=== PATIENT | male | born 1985 | race Caucasian/White ===

== ENCOUNTER 2020-12-08 23:35 | Emergency (ER) | payer MEDICAID ==
[~2020-12-08] VITALS: Ht 188 cm; Wt 77.3 kg
[2020-12-09 00:25] LABS: COVID AG,FIA SOURCE NASOPHARYNGEAL
[2020-12-09 00:48] LABS: CARBON DIOXIDE 26 mmol/L (22-29); CHLORIDE 105 mmol/L (98-107); CREATININE 0.91 mg/dL (0.60-1.30); GLOMERULAR FILTR. RATE CALC > 60 mL/min (>60); GLUCOSE,RANDOM 109 mg/dL (70-110); UREA NITROGEN, BLOOD 14 mg/dL (7-18)
[2020-12-09 00:52] LABS: ANION GAP 10 mmol/L (8-16); POTASSIUM 3.1 mmol/L (3.5-5.1); SODIUM SERUM 141 mmol/L (136-145)
[2020-12-09 01:15] VITALS: BP 144/92
[2020-12-09] MEDS ORDERED: POTASSIUM CHLORIDE 20 MEQ ER TABLET PO ONE (01:15)
[2020-12-09] MEDS ORDERED: LITH300C3 PO (16:50)
[2020-12-09] MEDS ORDERED: TRAZ-252 PO (16:50)
== END 2020-12-09 03:31 | disposition home or self-care (01) ==
LOC: EMS 23:37
DX: E87.6 Hypokalemia (principal); F12.90 Cannabis use, unspecified, uncomplicated; Z20.822 Contact with and (suspected) exposure to COVID-19
CPT/HCPCS: 80048; 99283

== ENCOUNTER 2020-12-09 03:32 | Emergency (ER) | payer MEDICAID ==
[~2020-12-09] VITALS: Ht 193 cm; Wt 77.3 kg
[2020-12-09] MEDS ORDERED: AmLODIPine BESYLATE 5 MG TABLET PO ONE (03:45)
[2020-12-09 05:33] VITALS: BP 148/77
[2020-12-09] MEDS ORDERED: TRAZ-252 PO (16:50)
[2020-12-09] MEDS ORDERED: LITH300C3 PO (16:50)
== END 2020-12-09 06:39 | disposition home or self-care (01) ==
LOC: EMS 03:37
DX: I10 Essential (primary) hypertension (principal); F12.90 Cannabis use, unspecified, uncomplicated
CPT/HCPCS: 99283

== ENCOUNTER 2020-12-09 15:19 | Inpatient (IN) | payer OTHER, MEDICAID ==
[~2020-12-09] VITALS: Ht 188 cm; Wt 74.6 kg
[2020-12-09] MEDS ORDERED: HALOPERIDOL 5 MG TABLET PO PRN (15:45)
[2020-12-09] MEDS ORDERED: LITH300C3 PO (16:50)
[2020-12-09] MEDS ORDERED: TRAZ-252 PO (16:50)
[2020-12-09 17:39] VITALS: BP 137/87
[2020-12-09] MEDS: LORazepam 2 MG TABLET PO PRN (18:58)
[2020-12-10 06:34] VITALS: BP 135/76
[2020-12-10 07:28] LABS: BASOPHILS % (AUTO) 1.3 % (0.0-2.0); EOSINOPHILS % (AUTO) 2.3 % (1.0-6.0); HEMATOCRIT 45.1 % (41-53); HEMOGLOBIN 14.8 g/dL (13.5-17.5); LYMPHOCYTES # (AUTO) 2.1 K/uL (1.0-4.8); LYMPHOCYTES % (AUTO) 43.8 % (22.0-44.0); MEAN CORPUSCULAR HEMOGLOBIN 29.6 pg (26.0-34.0); MEAN CORPUSCULAR HGB CONC 32.8 G/dL (31.0-37.0); MEAN CORPUSCULAR VOLUME 90 fL (80-100); MONOCYTES # (AUTO) 0.4 K/uL (0.1-1.0); MONOCYTES % (AUTO) 8.2 % (2.0-9.0); NEUTROPHILS # (AUTO) 2.1 K/uL (1.8-7.7); NEUTROPHILS % (AUTO) 44.4 % (40.0-70.0); PLATELET COUNT (AUTO) 240 K/uL (150-450); RED BLOOD CELL COUNT(AUTO) 4.99 MIL/uL (4.50-5.90); RED CELL DISTRIBUTION WIDTH 13.4 % (11.5-14.5)
[2020-12-10 08:00] VITALS: BP 144/81
[2020-12-10 08:08] LABS: ALANINE AMINOTRANSFERASE 18 U/L (12-78); ALKALINE PHOSPHATASE 46 U/L (46-116); ANION GAP 12 mmol/L (8-16); ASPARTATE AMINOTRANSFERASE 10 U/L (15-37); BILIRUBIN,TOTAL 1.9 mg/dL (0.1-1.0); CARBON DIOXIDE 26 mmol/L (22-29); CHLORIDE 106 mmol/L (98-107); CHOL/HDL RATIO 3.8 (4.2-7.3); CHOLESTEROL 167 mg/dL (131-200); CREATININE 0.92 mg/dL (0.60-1.30); FREE T4 (FREE THYROXINE) 1.58 ng/dL (0.76-1.46); GLOMERULAR FILTR. RATE CALC > 60 mL/min (>60); GLUCOSE,RANDOM 93 mg/dL (70-110); HDL CHOLESTEROL 44 mg/dL (40-60); LDL CHOL (CALC.) 115 mg/dL (0-130); POTASSIUM 3.9 mmol/L (3.5-5.1); SODIUM SERUM 144 mmol/L (136-145); THYROID STIMULATING HORMONE 0.11 uIU/mL (0.36-3.74); TOTAL PROTEIN, SERUM 7.1 g/dL (6.4-8.2); TRIGLYCERIDES 42 mg/dL (15-150); UREA NITROGEN, BLOOD 18 mg/dL (7-18)
[2020-12-10] MEDS ORDERED: ONDANSETRON HCL 4 MG TABLET PO PRN (09:15)
[2020-12-10] MEDS ORDERED: CloNIDine HCL 0.1 MG TABLET PO PRN (09:15)
[2020-12-10] MEDS ORDERED: MAG HYDROX/AL HYDROX/SIMETH ES 30 ML SUSPENSION UDCUP PO PRN (09:15)
[2020-12-10] MEDS ORDERED: GuaiFENesin/D-METHORPHAN [SUGAR-FREE] 200-20MG/10 ML SYRUP UDCUP PO PRN (09:15)
[2020-12-10] MEDS ORDERED: DOCUSATE SODIUM 100 MG CAPSULE PO PRN (09:15)
[2020-12-10] MEDS ORDERED: PETROLATUM,WHITE 28 GM JELLY TP PRN (09:15)
[2020-12-10] MEDS ORDERED: LOPERAMIDE HCL 2 MG CAPSULE PO PRN (09:15)
[2020-12-10] MEDS ORDERED: ALBUTEROL SULFATE HFA 90 MCG/PUFF 8 GM INHALER IH PRN (09:15)
[2020-12-10] MEDS ORDERED: NICOTINE 14 MG/24 HOUR PATCH TD PRN (09:15)
[2020-12-10] MEDS ORDERED: MAGNESIUM HYDROXIDE SUSPENSION 30 ML UDCUP PO PRN (09:15)
[2020-12-10] MEDS: LORazepam 2 MG TABLET PO PRN (09:22)
[2020-12-10] MEDS: OLANZapine 5 MG TABLET PO SCH (12:34)
[2020-12-10] MEDS: LITHIUM CARBONATE 300 MG CAPSULE PO SCH ×2 (12:34→17:11)
[2020-12-10] MEDS: TraZODone HCL 50 MG TABLET PO SCH (12:35)
[2020-12-10 16:00] VITALS: BP 110/77
[2020-12-10] MEDS: ZOLPIDEM TARTRATE 10 MG TABLET PO PRN (20:53)
[2020-12-11 01:47] VITALS: BP 114/71
[2020-12-11 08:11] VITALS: BP 140/98
[2020-12-11] MEDS: LITHIUM CARBONATE 300 MG CAPSULE PO SCH ×2 (08:43→16:29)
[2020-12-11] MEDS: OLANZapine 5 MG TABLET PO SCH (08:43)
[2020-12-11] MEDS: TraZODone HCL 50 MG TABLET PO SCH (08:43)
[2020-12-11] MEDS: LORazepam 2 MG TABLET PO PRN (10:29)
[2020-12-11 17:15] VITALS: BP 145/90
[2020-12-11] MEDS: ZOLPIDEM TARTRATE 10 MG TABLET PO PRN (22:05)
[2020-12-12 00:56] VITALS: BP 125/76
[2020-12-12 08:11] VITALS: BP 146/86
[2020-12-12] MEDS: LITHIUM CARBONATE 300 MG CAPSULE PO SCH ×2 (08:30→17:05)
[2020-12-12] MEDS: OLANZapine 5 MG TABLET PO SCH (08:30)
[2020-12-12] MEDS: TraZODone HCL 50 MG TABLET PO SCH (08:31)
[2020-12-12] MEDS: ACETAMINOPHEN 325 MG TABLET PO PRN (09:56)
[2020-12-12] MEDS: HYDROCORTISONE 2.5% 30 GM CREAM TP PRN (12:52)
[2020-12-12 16:14] VITALS: BP 135/76
[2020-12-12] MEDS: ZOLPIDEM TARTRATE 10 MG TABLET PO PRN (20:49)
[2020-12-13 00:56] VITALS: BP 118/73
[2020-12-13] MEDS: HYDROCORTISONE 2.5% 30 GM CREAM TP PRN (02:50)
[2020-12-13 08:20] VITALS: BP 140/97
[2020-12-13] MEDS: LITHIUM CARBONATE 300 MG CAPSULE PO SCH ×2 (08:38→16:28)
[2020-12-13] MEDS: TraZODone HCL 50 MG TABLET PO SCH (08:38)
[2020-12-13] MEDS: OLANZapine 5 MG TABLET PO SCH ×2 (08:38→16:28)
[2020-12-13] MEDS: ACETAMINOPHEN 325 MG TABLET PO PRN (11:04)
[2020-12-13 16:07] VITALS: BP 139/95
[2020-12-13] MEDS: ZOLPIDEM TARTRATE 10 MG TABLET PO PRN (20:55)
[2020-12-14 01:05] VITALS: BP 116/69
[2020-12-14 08:33] VITALS: BP 136/84
[2020-12-14] MEDS: OLANZapine 5 MG TABLET PO SCH ×3 (09:00→16:31)
[2020-12-14] MEDS: LITHIUM CARBONATE 300 MG CAPSULE PO SCH ×2 (10:33→17:10)
[2020-12-14] MEDS: TraZODone HCL 50 MG TABLET PO SCH (10:34)
[2020-12-14 16:16] VITALS: BP 140/82
[2020-12-15 00:37] VITALS: BP 134/80
[2020-12-15 07:46] LABS: COVID AG,FIA SOURCE NASOPHARYNGEAL
[2020-12-15 08:11] VITALS: BP 140/86
[2020-12-15] MEDS: TraZODone HCL 50 MG TABLET PO SCH (08:49)
[2020-12-15] MEDS: OLANZapine 5 MG TABLET PO SCH ×2 (08:50→16:14)
[2020-12-15] MEDS: IBUPROFEN 400 MG TABLET PO PRN (16:14)
[2020-12-15 16:17] VITALS: BP 137/85
[2020-12-16 00:15] VITALS: BP 139/87
[2020-12-16 08:09] VITALS: BP 129/76
[2020-12-16] MEDS: TraZODone HCL 50 MG TABLET PO SCH (08:48)
[2020-12-16] MEDS: OLANZapine 5 MG TABLET PO SCH ×2 (08:48→16:26)
[2020-12-16 16:08] VITALS: BP 126/79
[2020-12-17 00:21] VITALS: BP 119/76
[2020-12-17 08:09] VITALS: BP 132/90
[2020-12-17] MEDS: OLANZapine 5 MG TABLET PO SCH ×2 (09:09→16:00)
[2020-12-17] MEDS: TraZODone HCL 50 MG TABLET PO SCH (09:11)
[2020-12-17 16:10] VITALS: BP 137/86
[2020-12-17] MEDS: IBUPROFEN 400 MG TABLET PO PRN (21:51)
[2020-12-18 00:44] VITALS: BP 128/96
[2020-12-18 08:07] VITALS: BP 127/75
[2020-12-18] MEDS: TraZODone HCL 50 MG TABLET PO SCH (09:10)
[2020-12-18] MEDS: OLANZapine 5 MG TABLET PO SCH ×2 (09:10→16:39)
[2020-12-18 16:05] VITALS: BP 135/86
[2020-12-19 00:50] VITALS: BP 130/75
[2020-12-19] MEDS: TraZODone HCL 50 MG TABLET PO SCH (08:39)
[2020-12-19] MEDS: OLANZapine 5 MG TABLET PO SCH (08:40)
[2020-12-19 08:46] VITALS: BP 137/83
[2020-12-19] MEDS ORDERED: TRAZ-252 PO (10:39)
[2020-12-19] MEDS ORDERED: OLAN5TAB52 PO (10:40)
[2020-12-19 16:14] VITALS: BP 137/83
== END 2020-12-19 20:00 | disposition home or self-care (01) | DRG 885 ==
LOC: B2S 15:38
PROVIDERS: ADMIT Psychiatry & Neurology Child & Adolescent Psychiatry; ATTEND Psychiatry & Neurology Child & Adolescent Psychiatry
DX: F25.0 Schizoaffective disorder, bipolar type (principal); F22 Delusional disorders; F41.9 Anxiety disorder, unspecified; F19.10 Other psychoactive substance abuse, uncomplicated; E05.90 Thyrotoxicosis, unspecified without thyrotoxic crisis or storm; F10.10 Alcohol abuse, uncomplicated; F29 Unspecified psychosis not due to a substance or known physiological condition; R00.1 Bradycardia, unspecified; R03.0 Elevated blood-pressure reading, without diagnosis of hypertension; Z20.822 Contact with and (suspected) exposure to COVID-19; Z59.0 Homelessness; Z71.41 Alcohol abuse counseling and surveillance of alcoholic; Z91.19 Patient's noncompliance with other medical treatment and regimen
CPT/HCPCS: 80053; 80061; 80178; 84439; 84443; 85025